=== PATIENT | female | born 1960 | race Native Hawaiian/Other Pacific Islander ===

== ENCOUNTER 2017-12-20 17:46 | Inpatient (IN) | payer OTHER, SELFPAY ==
[2017-12-20] MEDS ORDERED: Piperacill/Tazo 3.375gm in Dex 3.375 GM/50 ML BAG IVPB STA (18:24)
[2017-12-20] MEDS ORDERED: Sodium Chloride 0.9% 1,000 ML IV ONE ×2 (18:24→19:47)
--- NOTE | 2017-12-20 18:45 | C.PDOC ---
History Of Present Illness 57yo female, with history of hypertension, CAD and diabetes, comes to ER with complaints of bilateral leg pain, left >> right leg. Patient states she was seen by her manager diabetes for a routine check up and earlier today had a venous US of legs. Patient reports she went home after the study and had right leg pain and subsequently left leg pain, which was much worse. She states the left leg is now swollen, red and hot; patient noted to have a temperature ft 103 in ED. She states she was seen in the office by Dr. Ranjiht Cook and advised her to come to the ER. Otherwise, she denies any chest pain, shortness of breath, weakness, numbness, or tingling in her lower extremities. She offers no additional medical complaints. Time Seen by Provider: 12/20/17 18:18 Chief Complaint (Nursing): Lower Extremity Problem/Injury History Per: Patient History/Exam Limitations: no limitations Onset/Duration Of Symptoms: Hrs Current Symptoms Are (Timing): Still Present Additional History Per: Patient Past Medical History Reviewed: Historical Data, Nursing Documentation, Vital Signs Vital Signs: Last Vital Signs Temp 103.2 F H 12/20/17 19:07 Pulse 118 H 12/20/17 20:00 Resp 20 12/20/17 20:00 BP 129/55 L 12/20/17 20:00 Pulse Ox 96 12/20/17 20:00 - Medical History PMH: CAD, Diabetes, HTN Surgical History: Coronary Stent Family History: States: No Known Family Hx - Social History Hx Tobacco Use: No Hx Alcohol Use: No Hx Substance Use: No - Immunization History Hx Tetanus Toxoid Vaccination: No Hx Influenza Vaccination: Yes Hx Pneumococcal Vaccination: Yes Review Of Systems Constitutional: Positive for: Fever (103) Cardiovascular: Negative for: Chest Pain Respiratory: Negative for: Shortness of Breath Musculoskeletal: Positive for: Leg Pain (bilateral lower extremity pain, left > > right.) Neurological: Negative for: Weakness, Numbness Physical Exam - Physical Exam Appears: Non-toxic Skin: Dry Head: Normacephalic Eye(s): bilateral: Normal Inspection Neck: Normal ROM, Supple Chest: Symmetrical Cardiovascular: Rhythm Regular (+ tachycardic, noted to have HR of 130) Respiratory: Normal Breath Sounds, No Rales, No Rhonchi, No Wheezing Gastrointestinal/Abdominal: Soft, No Tenderness Back: Normal Inspection Extremity: Tenderness (left leg is exquisitely tender, with swelling and erythema. 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 Patient given IV Zosyn and Vancomycin, IV fluids and Tylenol PO. Reevaluation Time: 20:09 Reassessment Condition: Improved - Physician Consult Information Time Consulting Physician Contacted: 20:09 Physician Contacted: Gilda Cook Outcome Of Conversation: Patient to be admitted for IV antibiotics for cellulitis with sepsis. Disposition - Disposition Disposition: HOSPITALIZED Disposition Time: 20:10 Condition: GUARDED - POA Present On Arrival: Poor Glycemic Control - Clinical Impression Clinical Impression: Cellulitis of leg, left, Sepsis - Scribe Statement The provider has reviewed the documentation as recorded by the Elvis Tang Provider Attestation: All medical record entries made by the Elvis were at my direction and personally dictated by me. I have reviewed the chart and agree that the record accurately reflects my personal performance of the history, physical exam, medical decision making, and the department course for this patient. I have also personally directed, reviewed, and agree with the discharge instructions and disposition.
[2017-12-20 18:47] LABS: BASO # 0.1 K/uL (0.0-0.2); BASO % 0.5 % (0.0-2.0); EOS % 0.2 % (0.0-4.0); LYMPH # 1.2 K/uL (1.0-4.3); LYMPH % 9.8 % (20.0-40.0); MEAN CELL VOLUME 88.2 fL (81.0-99.0); MEAN CORPUSCULAR HEMOGLOBIN 29.2 pg (27.0-31.0); MEAN CORPUSCULAR HGB CONC 33.1 g/dL (33.0-37.0); MONO # 0.8 K/uL (0.0-0.8); MONO % 6.9 % (0.0-10.0); NEUT # 9.8 K/uL (1.8-7.0); NEUT % 82.6 % (50.0-75.0); NRBC % 0.1 % (0.0-2.0); PLATELET COUNT 301 K/uL (130-400); RBC 4.72 Mil/uL (3.80-5.20); RED CELL DISTRIBUTION WIDTH 14.6 % (11.5-14.5)
[2017-12-20] MEDS ORDERED: Sodium Chloride 0.9% 1,000 ML ONE ×2 (18:49→19:39)
[2017-12-20 18:50] LABS: WHITE BLOOD COUNT 11.9 K/uL (4.8-10.8)
[2017-12-20] MEDS ORDERED: Piperacillin/Tazobact 3.375 gm 100 ML IVPB ONE (18:50)
[2017-12-20 18:51] LABS: HEMOGLOBIN 13.8 g/dL (11.0-16.0)
[2017-12-20 18:56] LABS: VENOUS BLOOD GAS PCO2 53 mmHg (40-60); VENOUS BLOOD PH 7.33 (7.32-7.43)
[2017-12-20 19:01] LABS: ALB/GLOB RATIO 1.2 (1.0-2.1); ALBUMIN 4.6 g/dL (3.5-5.0); ALT/SGPT 29 U/L (9-52); AST/SGOT 34 U/L (14-36); BLOOD UREA NITROGEN 20 mg/dL (7-17); CALCIUM 10.2 mg/dl (8.6-10.4); GFR AFRICAN-AMERICAN > 60; GFR NON-AFRICAN AMERICAN > 60
[2017-12-20 19:02] LABS: INR 0.9; PROTHROMBIN TIME 10.3 SECONDS (9.7-12.2)
[2017-12-20 19:30] LABS: BANDS 9 % (0-2); LYMPHOCYTE 10 % (20-40); MONOCYTE 6 % (0-10); NEUTROPHIL 75 % (50-75); PLATELET ESTIMATE NORMAL (NORMAL); TOTAL CELLS COUNTED 100
[2017-12-20 19:41] LABS: SQUAMOUS EPITHIAL 3 /hpf (0-5); URINE BILIRUBIN NEGATIVE (NEGATIVE); URINE BLOOD NEGATIVE (NEGATIVE); URINE CLARITY Clear (Clear); URINE COLOR Yellow (YELLOW); URINE GLUCOSE (UA) 3+ mg/dL (Normal); URINE LEUKOCYTE ESTERASE NEG Leu/uL (Negative); URINE PROTEIN NEGATIVE (NEGATIVE); URINE UROBILINOGEN NORMAL mg/dL (0.2-1.0)
[2017-12-20] MEDS: Vancomycin 1 gm/NS 200 ml 1 GM/200 ML BAG IVPB STA ×2 (19:45→20:10)
[2017-12-20 21:59] LABS: VENOUS BLOOD GAS PCO2 36 mmHg (40-60); VENOUS BLOOD GAS PO2 42 mm/Hg (30-55)
[2017-12-20] MEDS: Vancomycin 1 gm/NS 200 ml 1 GM/200 ML BAG IVPB SCH (22:00)
[2017-12-21 00:12] VITALS: RESP 20
[2017-12-21] MEDS: Oxycodone/Acetaminophen 5/325 mg Tab PO PRN ×3 (01:15→21:35)
[2017-12-21] MEDS: Piperacill/Tazo 3.375gm in Dex 3.375 GM/50 ML BAG IVPB SCH ×3 (02:00→17:31)
--- NOTE | 2017-12-21 08:15 | RAD ---
Date of service: 12/20/2017 HISTORY: Sepsis Patient COMPARISON: 08/09/2013 FINDINGS: LUNGS: Marked shallow lung volumes -more than before No consolidation. The vascular plethoric appearance compatible -in part with crowding from jypo-inspiration. Superimposed pulmonary venous congestion with mild cardiomegaly suspect . Large body habitus and portable technique accentuating all of the above PLEURA: No significant pleural effusion identified, no pneumothorax apparent. CARDIOVASCULAR: The vascular plethoric appearance compatible -in part with crowding from jypo-inspiration. Superimposed pulmonary venous congestion with mild cardiomegaly suspect . Large body habitus and portable technique accentuating all of the above OSSEOUS STRUCTURES: Limited visualization VISUALIZED UPPER ABDOMEN: Normal. OTHER FINDINGS: None. IMPRESSION: No consolidation cardiomegaly with mild pulmonary venous congestion -shallow lung volumes pulmonary vascular crowding accentuating
--- NOTE | 2017-12-21 09:08 | HP ---
HISTORY OF PRESENT ILLNESS: This is a 57-year-old [place] female who came to my office earlier today with history of severe left leg pain. The patient is unable to bear weight on that leg. Complained of left calf pain. The patient also has high fever and chills. The patient also has complained of redness and tingling in the left leg. The patient also has similar complaints on the right leg day before and claims now she is feeling good in the right leg. The patient went to a food manager for a routine checkup and earlier today had a venous ultrasound of the legs. The patient reports she went home after the study and had right leg pain and subsequently left leg pain. The pain was getting worse. The patient also complained of swelling of the left leg. In the emergency room, the patient's temperature was 103 degrees. She also complains of numbness, tingling, and burning. No history of nausea or vomiting. PAST MEDICAL HISTORY: Past history of diabetes, hypertension, and coronary artery disease. MEDICATIONS: The patient's medications are reviewed by me. ALLERGIES: NO KNOWN ALLERGY. SOCIAL HISTORY: Nonsmoker. Nonalcoholic. No IVDA. REVIEW OF SYSTEMS: CARDIOVASCULAR SYSTEM: Negative for chest pain. RESPIRATORY SYSTEM: Negative for shortness of breath. GI SYSTEM: Negative for nausea, vomiting, abdominal pain. WELL REACTIVATOR OPERATOR: Left leg tingling and numbness. No focal neurological deficit. EXTREMITIES: Edema on the leg present and redness of the leg present. GENERAL: Febrile. : No urinary complaint. PSYCHIATRIC: The patient is stable. All other systems are negative. PHYSICAL EXAMINATION: GENERAL: This is a 57-year-old [place] female, alert, oriented, in severe pain. VITAL SIGNS: Temperature 103.2 degrees Fahrenheit, pulse 118, respirations 20, and blood pressure 129/55 mmHg, pulse ox is 96% on room air. HEENT: Normal. NECK: JVP is flat. Carotid, no bruits. LUNGS: There are no rales. No wheezing. HEART: S1 and S2 normal. No gallop. No murmur. ABDOMEN: Soft, nontender. No organomegaly. WELL REACTIVATOR OPERATOR: No focal neurological deficits. Left leg is red, swollen, and severely tender. Calf muscle tenderness is also present. Right leg has similar findings but milder than the left leg. LABORATORY DATA: On admission, white cell count is elevated at 11,900, hemoglobin 13.8. Blood sugar 211. BUN 20, potassium 4.7. EKG is sinus tachycardia. IMPRESSION: Left leg cellulitis with sepsis, rule out deep venous thrombosis; diabetes; hypertension. PLAN: The patient will be admitted to the floor. We will give IV antibiotics and do septic workup and other workup as needed. Gilda Cook MD
[2017-12-21] MEDS: Vancomycin 1 gm/NS 200 ml 1 GM/200 ML BAG IVPB SCH ×2 (09:42→21:34)
[2017-12-21] MEDS: Cilostazol 50 mg Tab UD PO SCH ×2 (09:46→17:37)
[2017-12-21] MEDS: (Lantus) Insulin Glargine, Recombinant SC SCH ×2 (09:50→17:37)
[2017-12-21] MEDS ORDERED: INSULIN LISPRO PROTAMIN SQ SCH (10:00)
[2017-12-21] MEDS ORDERED: LISPRO SQ SCH (10:00)
--- NOTE | 2017-12-21 11:28 | CARD ---
APPROVED REPORT Date of service: 12/20/2017 EKG Measurement Heart [id number] ND [id number] [id number] <Conclusion> Sinus tachycardia Possible Left atrial enlargement Left axis deviation Septal infarct, age undetermined Inferior infarct, age undetermined Abnormal ECG
--- NOTE | 2017-12-21 12:25 | CP.PCM.PN ---
Subjective - Date & Time of Evaluation Date of Evaluation: 12/21/17 Time of Evaluation: 12:22 - Subjective Subjective: STILL FEBRILE. FEELS BETTER. LESS LEG PAIN AND REDNESS. VS WNL. Objective - Vital Signs/Intake and Output Vital Signs (last 24 hours): Temp Pulse Resp BP Pulse Ox 101.5 F H 104 H 20 135/70 96 12/21/17 08:47 12/21/17 08:00 12/21/17 08:00 12/21/17 09:46 12/21/17 08:00 Intake and Output: 12/21/17 12/21/17 06:59 18:59 Intake Total 450 Balance 450 - Medications Medications: Current Medications Acetaminophen (Tylenol 325mg Tab) 975 mg PO ONCE PRN PRN Reason: Fever >100.4 F Last Admin: 12/21/17 08:47 Dose: 975 mg Aspirin (Aspirin Chewable) 81 mg PO DAILY [facility] Last Admin: 12/21/17 09:46 Dose: 81 mg Cilostazol (Pletal) 50 mg PO BID [facility] Last Admin: 12/21/17 09:46 Dose: 50 mg Clonidine HCl (Catapres) 0.1 mg PO BID [facility] Last Admin: 12/21/17 09:51 Dose: 0.1 mg Clopidogrel Bisulfate (Plavix) 75 mg PO DAILY [facility] Last Admin: 12/21/17 09:51 Dose: 75 mg Duloxetine HCl (Cymbalta) 20 mg PO DAILY [facility] Last Admin: 12/21/17 09:55 Dose: 20 mg Enalapril Maleate (Vasotec) 20 mg PO DAILY [facility] Last Admin: 12/21/17 09:46 Dose: 20 mg Gabapentin (Neurontin) 300 mg PO BID [facility] Last Admin: 12/21/17 09:52 Dose: 300 mg Glimepiride (Amaryl) 4 mg PO BID [facility] Last Admin: 12/21/17 09:56 Dose: Not Given Heparin Sodium (Porcine) (Heparin) 5,000 units SC Q12 [facility] Last Admin: 12/21/17 09:51 Dose: 5,000 units Home Med (Canagliflozin [Invokana]) 100 mg PO DAILY [facility] Home Med (Insulin Lispro Protamin/Lispro [Humalog Mix 75-25 Kwikpen]) 60 unit SQ BID [facility] Hydrochlorothiazide (Microzide) 12.5 mg PO DAILY [facility] Last Admin: 12/21/17 09:52 Dose: 12.5 mg Piperacillin Sod/Tazobactam Sod (Zosyn 3.375 Gm Iv Premix) 3.375 gm in 50 mls @ 100 mls/hr IVPB Q8H [facility] PRN Reason: Protocol Last Admin: 12/21/17 09:42 Dose: 100 mls/hr Vancomycin/Sodium Chloride (Vancomycin 1 Gm/Ns 200 Ml) 1 gm in 200 mls @ 133.333 mls/hr IVPB Q12H [facility] PRN Reason: Protocol Stop: 12/25/17 22:01 Last Admin: 12/21/17 09:42 Dose: 133.333 mls/hr Insulin Glargine (Lantus) 45 unit SC BID [facility] Last Admin: 12/21/17 09:50 Dose: 45 units Oxycodone/Acetaminophen (Percocet 5/325 Mg Tab) 1 tab PO Q6H PRN PRN Reason: Pain, severe (8-10) Stop: 12/23/17 21:26 Last Admin: 12/21/17 07:39 Dose: 1 tab Pneumococcal Polyvalent Vaccine (Pneumovax 23 Vaccine) 0.5 ml IM .ONCE ONE Stop: 12/22/17 10:01 Rosuvastatin Calcium (Crestor) 20 mg PO [facility] Last Admin: 12/20/17 22:35 Dose: 20 mg - Labs Labs: 12/20/17 18:44 12/20/17 18:44 PT 10.3 SECONDS (9.7-12.2) 12/20/17 18:44 INR 0.9 12/20/17 18:44 APTT 34 SECONDS (21-34) 12/20/17 18:44 - Constitutional Appears: No Acute Distress, Chronically Ill - Eye Exam Eye Exam: EOMI, Normal appearance, PERRL Pupil Exam: NORMAL ACCOMODATION, PERRL - ENT Exam ENT Exam: Mucous Membranes Moist, Normal Exam - Neck Exam Neck Exam: Full ROM, Normal Inspection. absent: Lymphadenopathy - Respiratory Exam Respiratory Exam: Clear to Ausculation Bilateral, NORMAL BREATHING PATTERN - Cardiovascular Exam Cardiovascular Exam: REGULAR RHYTHM, +S1, +S2. absent: Murmur - GI/Abdominal Exam GI & Abdominal Exam: Soft, Normal Bowel Sounds. absent: Tenderness - Extremities Exam Extremities Exam: Full ROM, Normal Capillary Refill, Normal Inspection. absent : Joint Swelling, Pedal Edema - Neurological Exam Neurological Exam: Alert, Awake, CN II-XII Intact, Normal Gait, Oriented x3 - Psychiatric Exam Psychiatric exam: Normal Affect, Normal Mood Assessment and Plan - Assessment and Plan (Free Text) Assessment: CELLULITIS LT LEG R/O SEPSIS. DM. R/O DVT. Plan: FOR ID EVAL. IV ABTS.
--- NOTE | 2017-12-21 18:31 | CP.PCM.CON ---
History of Present Illness - History of Present Illness History of Present Illness: 57yo female, with history of hypertension, CAD and diabetes, comes to ER with complaints of bilateral leg pain, left >> right leg. Patient states she was seen by her lay out helper for a routine check up and had a venous US of legs. Patient reports she went home after the study and had right leg pain and subsequently left leg pain, which was much worse. She states the left leg is now swollen, red and hot; patient noted to have a temperature ft 103 in ED. ID consult requested for antibiotic management - Medical History PMH: CAD, Diabetes, HTN Surgical History: Coronary Stent Family History: States: No Known Family Hx Review of Systems - Review of Systems All systems: reviewed and no additional remarkable complaints except - Constitutional Constitutional: As Per HPI - EENT Eyes: As Per HPI. absent: Blind Spots, Blurred Vision, Change in Vision, Decreased Night Vision, Diplopia, Discharge, Dry Eye, Exophthalmos, Floaters, Irritation, Itchy Eyes, Loss of Peripheral Vision, Pain, Photophobia, Requires Corrective Lenses, Sees Flashes, Spots in Vision, Tunnel Vision, Other Visual Disturbances, Loss of Vision, Other Ears: absent: As Per HPI, Decreased Hearing, Ear Discharge, Ear Pain, Tinnitus, Abnormal Hearing, Disequilibrium, Dizziness, Other Nose/Mouth/Throat: absent: As Per HPI, Epistaxis, Nasal Congestion, Nasal Discharge, Nasal Obstruction, Nasal Trauma, Nose Pain, Post Nasal Drip, Sinus Pain, Sinus Pressure, Bleeding Gums, Change in Voice, Dental Pain, Dry Mouth, Dysphagia, Halitosis, Hoarsness, Lip Swelling, Mouth Lesions, Mouth Pain, Odynophagia, Sore Throat, Throat Swelling, Tongue Swelling, Facial Pain, Neck Pain, Neck Mass, Other - Breasts Breasts: absent: As Per HPI, Change in Shape, Mass, Pain, Nipple Discharge, Nipple Inversion, Skin Changes, Swelling, Other - Cardiovascular Cardiovascular: As Per HPI - Respiratory Respiratory: As Per HPI - Gastrointestinal Gastrointestinal: absent: As Per HPI, Abdominal Pain, Belching, Bloating, Change in Bowel Habits, Change in Stool Character, Coffee Ground Emesis, Constipation, Cramping, Diarrhea, Dyspepsia, Dysphagia, Early Satiety, Excessive Flatus, Fecal Incontinence, Heartburn, Hematemesis, Hematochezia, Loose Stools, Melena, Nausea, Odynophagia, Temesmus, Vomiting, Other - Genitourinary Genitourinary: absent: As Per HPI, Change in Urinary Stream, Difficulty Urinating, Dysuria, Flank Pain, Hematuria, Pyuria, Nocturia, Urinary Incontinence, Urinary Frequency, Urinary Hesitance, Urinary Urgency, Voiding Freq/Small Amts, Freq UTI, Hx Renal/Bladder Calculi, Hx /Renal Surgery, Bladder Distension, Other - Reproductive: Female Reproductive:Female: absent: As Per HPI, Amenorrhea, Amenorrhea/ Control, Currently Menstual, Cycle <21 Days, Cycle >35 Days, Cycle Variable, Menses 1-7 Days, Menses >/= 8 Days, Menses Variable, Cycle > 4 Weeks Between, No Menses for 6 Months, Heavy Menses, Light Menses, Normal Menses, Spotting Between Cycles , S/P Hysterectomy, Menopausal, Post Menopausal, Premenarche, Abnormal Vaginal Bleeding, Dysmenorrhea, Dyspareunia, Genital Lesions, Genital Pruritis, Pelvic Pain, Prolapse Symptoms, Sexual Dysfunction, Vaginal Discharge, Vaginal Dryness , Vaginal Odor, Vaginal Pruritis, Other - Menstruation Menstruation: absent: As Per HPI, Amenorrhea, Amenorrhea/ Control, Currently Menstual, Cycle <21 Days, Cycle >35 Days, Cycle Variable, Menses 1-7 Days, Menses >/= 8 Days, Menses Variable, Cycle > 4 Weeks Between, No Menses for 6 Months, Heavy Menses, Light Menses, Normal Menses, Spotting Between Cycles , S/P Hysterectomy, Menopausal, Post Menopausal, Premenarche, Abnormal Vaginal Bleeding, Dysmenorrhea, Other - Musculoskeletal Musculoskeletal: absent: As Per HPI, Abnormal Gait, Arthralgias, Atrophy, Back Pain, Deformity, Joint Swelling, Limited Range of Motion, Loss of Height, Muscle Cramps, Muscle Weakness, Myalgias, Neck Pain, Numbness, Radiating Pain into Limb, Stiffness, Tingling, Other - Integumentary Integumentary: As Per HPI - Neurological Neurological: absent: As Per HPI, Abnormal Gait, Abnormal Hearing, Abnormal Movements, Abnormal Speech, Behavioral Changes, Burning Sensations, Confusion, Convulsions, Disequilibrium, Dizziness, Numbness, Focal Weakness, Frequent Falls , Headaches, Lack of Coordination, Loss of Vision, Memory Loss, Paresthesias, Radicular Pain, Restless Legs, Sensory Deficit, Syncope, Tingling, Tremor, Vertigo, Weakness, Other Visual Disturbances, Other - Psychiatric Psychiatric: absent: As Per HPI, Abnormal Sleep Pattern, Anhedonia, Anxiety, Auditory Hallucinations, Behavioral Changes, Change in Appetite, Change in Libido, Confusion, Depression, Difficulty Concentrating, Hallucinations, Homicidal Ideation, Hopelessness, Irritability, Memory Loss, Mood Swings, Panic Attacks, Paranoia, Suicidal Ideation, Visual Hallucinations, Tactile Hallucinations, Other - Endocrine Endocrine: absent: As Per HPI, Change in Body Appearance, Change in Libido, Cold Intolorance, Deepening of Voice, Excessive Sweating, Fatigue, Flushing, Heat Intolorance, Increase in Ring/Shoe/Hat Size, Palpitations, Polydipsia, Polyphagia, Polyuria, Other - Hematologic/Lymphatic Hematologic: absent: As Per HPI, Easy Bleeding, Easy Bruising, Lymphadenopathy, Other Past Patient History - Past Medical History & Family History Past Medical History?: Yes - Past Social History Smoking Status: Never Smoked - CARDIAC Hx Cardiac Disorders: Yes Hx Hypertension: Yes Other/Comment: CAD - PULMONARY Hx Respiratory Disorders: No - NEUROLOGICAL Hx Neurological Disorder: No - HEENT Hx HEENT Problems: No - RENAL Hx Chronic Kidney Disease: No - ENDOCRINE/METABOLIC Hx Endocrine Disorders: Yes Hx Diabetes Mellitus Type 2: Yes - HEMATOLOGICAL/ONCOLOGICAL Hx Blood Disorders: No - INTEGUMENTARY Hx Dermatological Problems: No - MUSCULOSKELETAL/RHEUMATOLOGICAL Hx Musculoskeletal Disorders: No Hx Falls: No - GASTROINTESTINAL Hx Gastrointestinal Disorders: No - GENITOURINARY/GYNECOLOGICAL Hx Genitourinary Disorders: No - PSYCHIATRIC Hx Psychophysiologic Disorder: No Hx Substance Use: No - SURGICAL HISTORY Hx Surgeries: Yes Hx Coronary Stent: Yes - ANESTHESIA Hx Anesthesia: Yes Hx Anesthesia Reactions: No Meds Allergies/Adverse Reactions: Allergies Allergy/AdvReac Type Severity Reaction Status Date / Time No Known Allergies Allergy Verified 12/20/17 17:59 - Medications Medications: Current Medications Acetaminophen (Tylenol 325mg Tab) 975 mg PO ONCE PRN PRN Reason: Fever >100.4 F Last Admin: 12/21/17 08:47 Dose: 975 mg Aspirin (Aspirin Chewable) 81 mg PO DAILY [facility] Last Admin: 12/21/17 09:46 Dose: 81 mg Cilostazol (Pletal) 50 mg PO BID [facility] Last Admin: 12/21/17 17:37 Dose: 50 mg Clonidine HCl (Catapres) 0.1 mg PO BID [facility] Last Admin: 12/21/17 17:36 Dose: 0.1 mg Clopidogrel Bisulfate (Plavix) 75 mg PO DAILY [facility] Last Admin: 12/21/17 09:51 Dose: 75 mg Duloxetine HCl (Cymbalta) 20 mg PO DAILY [facility] Last Admin: 12/21/17 09:55 Dose: 20 mg Enalapril Maleate (Vasotec) 20 mg PO DAILY [facility] Last Admin: 12/21/17 09:46 Dose: 20 mg Gabapentin (Neurontin) 300 mg PO BID [facility] Last Admin: 12/21/17 17:36 Dose: 300 mg Glimepiride (Amaryl) 4 mg PO BID [facility] Last Admin: 12/21/17 17:37 Dose: 4 mg Heparin Sodium (Porcine) (Heparin) 5,000 units SC Q12 [facility] Last Admin: 12/21/17 09:51 Dose: 5,000 units Home Med (Patient's Own Medication) 1 tab PO DAILY [facility] Home Med (Insulin Lispro Protamin/Lispro [Humalog Mix 75-25 Kwikpen]) 60 unit SQ BID [facility] Hydrochlorothiazide (Microzide) 12.5 mg PO DAILY [facility] Last Admin: 12/21/17 09:52 Dose: 12.5 mg Piperacillin Sod/Tazobactam Sod (Zosyn 3.375 Gm Iv Premix) 3.375 gm in 50 mls @ 100 mls/hr IVPB Q8H [facility] PRN Reason: Protocol Last Admin: 12/21/17 17:31 Dose: 100 mls/hr Vancomycin/Sodium Chloride (Vancomycin 1 Gm/Ns 200 Ml) 1 gm in 200 mls @ 133.333 mls/hr IVPB Q12H [facility] PRN Reason: Protocol Stop: 12/25/17 22:01 Last Admin: 12/21/17 09:42 Dose: 133.333 mls/hr Insulin Glargine (Lantus) 45 unit SC BID [facility] Last Admin: 12/21/17 17:37 Dose: 45 units Oxycodone/Acetaminophen (Percocet 5/325 Mg Tab) 1 tab PO Q6H PRN PRN Reason: Pain, severe (8-10) Stop: 12/23/17 21:26 Last Admin: 12/21/17 07:39 Dose: 1 tab Pneumococcal Polyvalent Vaccine (Pneumovax 23 Vaccine) 0.5 ml IM .ONCE ONE Stop: 12/22/17 10:01 Rosuvastatin Calcium (Crestor) 20 mg PO HS [facility] Last Admin: 12/20/17 22:35 Dose: 20 mg Physical Exam - Constitutional Appears: Non-toxic, Chronically Ill - Head Exam Head Exam: NORMOCEPHALIC - Eye Exam Eye Exam: PERRL - ENT Exam ENT Exam: Mucous Membranes Dry - Neck Exam Neck exam: Negative for: Lymphadenopathy - Respiratory Exam Respiratory Exam: Decreased Breath Sounds - Cardiovascular Exam Cardiovascular Exam: REGULAR RHYTHM - GI/Abdominal Exam GI & Abdominal Exam: Diminished Bowel Sounds - Rectal Exam Rectal Exam: Deferred - Exam Exam: NORMAL INSPECTION - Extremities Exam Extremities exam: Positive for: pedal pulses present. Negative for: calf tenderness, pedal edema, tenderness - Back Exam Back exam: absent: CVA tenderness (L), CVA tenderness (R), paraspinal tenderness - Neurological Exam Neurological exam: Alert, CN II-XII Intact, Oriented x3, Reflexes Normal - Psychiatric Exam Psychiatric exam: Normal Mood - Skin Skin Exam: Dry, Erythema, Intact Additional comments: swelling redness LLE Results - Vital Signs Recent Vital Signs: Last Vital Signs Temp 98 F 12/21/17 16:00 Pulse 86 12/21/17 16:00 Resp 20 12/21/17 16:00 BP 103/67 12/21/17 16:00 Pulse Ox 97 12/21/17 16:00 - Labs Result Diagrams: 12/20/17 18:44 12/20/17 18:44 Labs: Laboratory Results - last 24 hr 12/20/17 12/20/17 12/20/17 18:44 18:44 18:44 WBC 11.9 H D RBC 4.72 Hgb 13.8 D Hct 41.6 MCV 88.2 MCH 29.2 MCHC 33.1 RDW 14.6 H Plt Count 301 MPV 8.0 Neut % (Auto) 82.6 H Lymph % (Auto) 9.8 L Humphreys % (Auto) 6.9 Eos % (Auto) 0.2 Baso % (Auto) 0.5 Neut # (Auto) 9.8 H Lymph # (Auto) 1.2 Humphreys # (Auto) 0.8 Eos # (Auto) 0.0 Baso # (Auto) 0.1 Neutrophils % (Manual) 75 Band Neutrophils % 9 H Lymphocytes % (Manual) 10 L Monocytes % (Manual) 6 Platelet Estimate Normal PT 10.3 INR 0.9 APTT 34 pO2 VBG pH VBG pCO2 VBG HCO3 VBG Total CO2 VBG O2 Sat (Calc) VBG Base Excess VBG Potassium Glucose Lactate Sodium 142 Potassium 4.7 Chloride 102 Carbon Dioxide 25 Anion Gap 20 BUN 20 H Creatinine 0.9 Est GFR ( Amer) > 60 Est GFR (Non-Af Amer) > 60 POC Glucose (mg/dL) Random Glucose 211 H Calcium 10.2 Phosphorus 3.4 Magnesium 1.9 Total Bilirubin 0.8 AST 34 ALT 29 Alkaline Phosphatase 76 Total Protein 8.4 H Albumin 4.6 Globulin 3.8 Albumin/Globulin Ratio 1.2 Venous Blood Potassium Urine Color Urine Clarity Urine pH Ur Specific [place] Urine Protein Urine Glucose (UA) Urine Ketones Urine Blood Urine Nitrate Urine Bilirubin Urine Urobilinogen Ur Leukocyte Esterase Urine WBC (Auto) Urine RBC (Auto) Ur Squamous Epith Cells 12/20/17 12/20/17 12/20/17 18:51 19:24 21:55 WBC RBC Hgb Hct MCV MCH MCHC RDW Plt Count MPV Neut % (Auto) Lymph % (Auto) Humphreys % (Auto) Eos % (Auto) Baso % (Auto) Neut # (Auto) Lymph # (Auto) Humphreys # (Auto) Eos # (Auto) Baso # (Auto) Neutrophils % (Manual) Band Neutrophils % Lymphocytes % (Manual) Monocytes % (Manual) Platelet Estimate PT INR APTT pO2 42 VBG pH 7.33 7.40 VBG pCO2 53 36 L VBG HCO3 22.8 VBG Total CO2 29.5 H 23.4 VBG O2 Sat (Calc) 16.0 L 79.8 H VBG Base Excess 1.0 -2.0 L VBG Potassium 4.8 3.9 Glucose 219 H 191 H Lactate 3.9 H 1.9 Sodium 137.0 138.0 Potassium Chloride 100.0 109.0 H Carbon Dioxide Anion Gap BUN Creatinine Est GFR ( Amer) Est GFR (Non-Af Amer) POC Glucose (mg/dL) Random Glucose Calcium Phosphorus Magnesium Total Bilirubin AST ALT Alkaline Phosphatase Total Protein Albumin Globulin Albumin/Globulin Ratio Venous Blood Potassium 4.8 3.9 Urine Color Yellow Urine Clarity Clear Urine pH 6.0 Ur Specific [place] 1.020 Urine Protein Negative Urine Glucose (UA) 3+ H Urine Ketones Negative Urine Blood Negative Urine Nitrate Negative Urine Bilirubin Negative Urine Urobilinogen Normal Ur Leukocyte Esterase Neg Urine WBC (Auto) 2 Urine RBC (Auto) 2 Ur Squamous Epith Cells 3 12/20/17 12/21/17 12/21/17 21:59 07:30 11:42 WBC RBC Hgb Hct MCV MCH MCHC RDW Plt Count MPV Neut % (Auto) Lymph % (Auto) Humphreys % (Auto) Eos % (Auto) Baso % (Auto) Neut # (Auto) Lymph # (Auto) Humphreys # (Auto) Eos # (Auto) Baso # (Auto) Neutrophils % (Manual) Band Neutrophils % Lymphocytes % (Manual) Monocytes % (Manual) Platelet Estimate PT INR APTT pO2 VBG pH VBG pCO2 VBG HCO3 VBG Total CO2 VBG O2 Sat (Calc) VBG Base Excess VBG Potassium Glucose Lactate Sodium Potassium Chloride Carbon Dioxide Anion Gap BUN Creatinine Est GFR ( Amer) Est GFR (Non-Af Amer) POC Glucose (mg/dL) 180 H 94 193 H Random Glucose Calcium Phosphorus Magnesium Total Bilirubin AST ALT Alkaline Phosphatase Total Protein Albumin Globulin Albumin/Globulin Ratio Venous Blood Potassium Urine Color Urine Clarity Urine pH Ur Specific [place] Urine Protein Urine Glucose (UA) Urine Ketones Urine Blood Urine Nitrate Urine Bilirubin Urine Urobilinogen Ur Leukocyte Esterase Urine WBC (Auto) Urine RBC (Auto) Ur Squamous Epith Cells 12/21/17 17:04 WBC RBC Hgb Hct MCV MCH MCHC RDW Plt Count MPV Neut % (Auto) Lymph % (Auto) [place] % (Auto) Eos % (Auto) Baso % (Auto) Neut # (Auto) Lymph # (Auto) [place] # (Auto) Eos # (Auto) Baso # (Auto) Neutrophils % (Manual) Band Neutrophils % Lymphocytes % (Manual) Monocytes % (Manual) Platelet Estimate PT INR APTT pO2 VBG pH VBG pCO2 VBG HCO3 VBG Total CO2 VBG O2 Sat (Calc) VBG Base Excess VBG Potassium Glucose Lactate Sodium Potassium Chloride Carbon Dioxide Anion Gap BUN Creatinine Est GFR ( Amer) Est GFR (Non-Af Amer) POC Glucose (mg/dL) 206 H Random Glucose Calcium Phosphorus Magnesium Total Bilirubin AST ALT Alkaline Phosphatase Total Protein Albumin Globulin Albumin/Globulin Ratio Venous Blood Potassium Urine Color Urine Clarity Urine pH Ur Specific [place] Urine Protein Urine Glucose (UA) Urine Ketones Urine Blood Urine Nitrate Urine Bilirubin Urine Urobilinogen Ur Leukocyte Esterase Urine WBC (Auto) Urine RBC (Auto) Ur Squamous Epith Cells
[2017-12-22] MEDS: Piperacill/Tazo 3.375gm in Dex 3.375 GM/50 ML BAG IVPB SCH ×3 (02:34→17:31)
[2017-12-22 06:47] LABS: BASO # 0.1 K/uL (0.0-0.2); BASO % 0.5 % (0.0-2.0); EOS # 0.1 K/uL (0.0-0.7); EOS % 1.3 % (0.0-4.0); LYMPH % 18.3 % (20.0-40.0); MEAN CELL VOLUME 87.9 fL (81.0-99.0); MEAN CORPUSCULAR HEMOGLOBIN 29.6 pg (27.0-31.0); MEAN CORPUSCULAR HGB CONC 33.7 g/dL (33.0-37.0); MEAN PLATELET VOLUME 8.2 fL (7.2-11.7); MONO # 0.9 K/uL (0.0-0.8); MONO % 8.1 % (0.0-10.0); NEUT % 71.8 % (50.0-75.0); NRBC % 0.1 % (0.0-2.0); RBC 4.04 Mil/uL (3.80-5.20); RED CELL DISTRIBUTION WIDTH 14.5 % (11.5-14.5); WHITE BLOOD COUNT 11.1 K/uL (4.8-10.8)
[2017-12-22 08:22] LABS: BLOOD UREA NITROGEN 20 mg/dL (7-17); CALCIUM 9.3 mg/dl (8.6-10.4); GFR AFRICAN-AMERICAN > 60; GFR NON-AFRICAN AMERICAN 58
[2017-12-22] MEDS ORDERED: Pneumococcal 23-Valent Vaccine IM ONE (10:00)
[2017-12-22] MEDS: Cilostazol 50 mg Tab UD PO SCH ×2 (10:29→17:32)
[2017-12-22] MEDS: INVOKANA 100MG PO SCH (10:29)
[2017-12-22] MEDS: (Lantus) Insulin Glargine, Recombinant SC SCH ×2 (10:30→17:32)
[2017-12-22] MEDS: Vancomycin 1 gm/NS 200 ml 1 GM/200 ML BAG IVPB SCH ×2 (10:47→21:19)
--- NOTE | 2017-12-22 10:53 | VASCLAB ---
Date of service: 12/21/2017 PROCEDURE: Lower Extremity Venous Duplex Exam. HISTORY: swelling of legs. PRIORS: None. TECHNIQUE: Bilateral common femoral, femoral, popliteal and posterior tibial, peroneal and great saphenous veins were evaluated. Flow was assessed with color Doppler, compressibility, assessment of phasic flow and augmentation response. Report prepared by MATTIE Connor FINDINGS: RIGHT: 1. Common Femoral Vein: 1.1. Compressibility - Fully compressible: Thrombus - None : Flow - Phasic: Augmentation -Normal: Reflux - None. 2. Femoral Vein: 2.1. Compressibility - Fully compressible: Thrombus - None : Flow - Phasic: Augmentation -Normal: Reflux - None. 3. Popliteal Vein: 3.1. Compressibility - Fully compressible: Thrombus - None : Flow - Phasic: Augmentation -Normal: Reflux - None. 4. Posterior Tibial Vein: 4.1. Compressibility - Fully compressible: Thrombus - None: Flow - Phasic: Augmentation -Normal: Reflux - None. 5. Peroneal Vein: 5.1. Compressibility - Fully compressible: Thrombus - None: Flow - Phasic: Augmentation -Normal: Reflux - None. 6. Great Saphenous Vein: 6.1. Compressibility - Fully compressible: Thrombus - None: Flow - Phasic: Augmentation - Normal: Reflux - None. LEFT: 1. Common Femoral Vein: 1.1. Compressibility - Fully compressible: Thrombus - None: Flow - Phasic: Augmentation -Normal: Reflux - None. 2. Femoral Vein: 2.1. Compressibility - Fully compressible: Thrombus - None: Flow - Phasic: Augmentation -Normal: Reflux - None. 3. Popliteal Vein: 3.1. Compressibility - Fully compressible: Thrombus - None : Flow - Phasic: Augmentation -Normal: Reflux - None. 4. Posterior Tibial Vein: 4.1. Compressibility - Fully compressible: Thrombus - None: Flow - Phasic: Augmentation -Normal: Reflux - None. 5. Peroneal Vein: 5.1. Compressibility - Fully compressible: Thrombus - None: Flow - Phasic: Augmentation -Normal: Reflux - None. 6. Great Saphenous Vein: 6.1. Compressibility - Fully compressible: Thrombus - None: Flow - Phasic: Augmentation - Normal: Reflux - None. OTHER FINDINGS: Right: None significant. Left: None significant. IMPRESSION: Right: No evidence of deep or superficial vein thrombosis of the right lower extremity. Normal valve function noted of the right side. Left: No evidence of deep or superficial vein thrombosis of the left lower extremity. Normal valve function noted of the left side.
--- NOTE | 2017-12-22 12:30 | CP.PCM.PN ---
Subjective - Date & Time of Evaluation Date of Evaluation: 12/22/17 Time of Evaluation: 12:27 - Subjective Subjective: C/O LT LEG PAIN UNABLE TO BEAR WEIGHT. AFEBRILE. LT LEG CELLULITIS PRESENT. VENOUS DOPPLER NEG FOR DVT. LABS IMPROVE. Objective - Vital Signs/Intake and Output Vital Signs (last 24 hours): Temp Pulse Resp BP Pulse Ox 98.5 F 98 H 20 122/71 99 12/22/17 08:41 12/22/17 08:41 12/22/17 08:41 12/22/17 09:36 12/22/17 08:41 Intake and Output: 12/22/17 12/22/17 06:59 18:59 Intake Total 700 Balance 700 - Medications Medications: Current Medications Acetaminophen (Tylenol 325mg Tab) 975 mg PO ONCE PRN PRN Reason: Fever >100.4 F Last Admin: 12/21/17 08:47 Dose: 975 mg Aspirin (Aspirin Chewable) 81 mg PO DAILY [facility] Cilostazol (Pletal) 50 mg PO BID [facility] Last Admin: 12/22/17 10:29 Dose: 50 mg Clonidine HCl (Catapres) 0.1 mg PO BID [facility] Last Admin: 12/22/17 09:35 Dose: 0.1 mg Clopidogrel Bisulfate (Plavix) 75 mg PO DAILY [facility] Last Admin: 12/22/17 09:35 Dose: 75 mg Duloxetine HCl (Cymbalta) 20 mg PO DAILY [facility] Last Admin: 12/22/17 10:29 Dose: 20 mg Enalapril Maleate (Vasotec) 20 mg PO DAILY [facility] Last Admin: 12/22/17 09:36 Dose: 20 mg Gabapentin (Neurontin) 300 mg PO BID [facility] Last Admin: 12/22/17 09:35 Dose: 300 mg Glimepiride (Amaryl) 4 mg PO BID [facility] Last Admin: 12/22/17 09:35 Dose: 4 mg Heparin Sodium (Porcine) (Heparin) 5,000 units SC Q12 [facility] Last Admin: 12/22/17 09:36 Dose: 5,000 units Home Med (Patient's Own Medication) 1 tab PO DAILY [facility] Last Admin: 12/22/17 10:29 Dose: 1 tab Home Med (Insulin Lispro Protamin/Lispro [Humalog Mix 75-25 Kwikpen]) 60 unit SQ BID [facility] Hydrochlorothiazide (Microzide) 12.5 mg PO DAILY [facility] Last Admin: 12/22/17 09:35 Dose: 12.5 mg Piperacillin Sod/Tazobactam Sod (Zosyn 3.375 Gm Iv Premix) 3.375 gm in 50 mls @ 100 mls/hr IVPB Q8H [facility] PRN Reason: Protocol Last Admin: 12/22/17 10:46 Dose: 100 mls/hr Vancomycin/Sodium Chloride (Vancomycin 1 Gm/Ns 200 Ml) 1 gm in 200 mls @ 133.333 mls/hr IVPB Q12H [facility] PRN Reason: Protocol Stop: 12/25/17 22:01 Last Admin: 12/22/17 10:47 Dose: Not Given Insulin Glargine (Lantus) 45 unit SC BID [facility] Last Admin: 12/22/17 10:30 Dose: 45 units Oxycodone/Acetaminophen (Percocet 5/325 Mg Tab) 1 tab PO Q6H [facility] PRN Reason: Pain, severe (8-10) Stop: 12/23/17 21:26 Last Admin: 12/21/17 21:35 Dose: 1 tab Rosuvastatin Calcium (Crestor) 20 mg PO HS [facility] Last Admin: 12/21/17 21:38 Dose: 20 mg Zolpidem Tartrate (Ambien) 5 mg PO HS PRN PRN Reason: Insomnia Last Admin: 12/21/17 22:40 Dose: 5 mg - Labs Labs: 12/22/17 06:36 12/22/17 06:36 PT 10.3 SECONDS (9.7-12.2) 12/20/17 18:44 INR 0.9 12/20/17 18:44 APTT 34 SECONDS (21-34) 12/20/17 18:44 - Constitutional Appears: No Acute Distress, Chronically Ill - Eye Exam Eye Exam: EOMI, Normal appearance, PERRL Pupil Exam: NORMAL ACCOMODATION, PERRL - ENT Exam ENT Exam: Mucous Membranes Moist, Normal Exam - Neck Exam Neck Exam: Full ROM, Normal Inspection. absent: Lymphadenopathy - Respiratory Exam Respiratory Exam: Clear to Ausculation Bilateral, NORMAL BREATHING PATTERN - Cardiovascular Exam Cardiovascular Exam: REGULAR RHYTHM, +S1, +S2. absent: Murmur - GI/Abdominal Exam GI & Abdominal Exam: Soft, Normal Bowel Sounds. absent: Tenderness - Extremities Exam Extremities Exam: Calf Tenderness, Full ROM, Normal Capillary Refill, Normal Inspection, Tenderness. absent: Joint Swelling, Pedal Edema Additional comments: LT LEG TENDERNESS AND REDNESS PRESENT. - Neurological Exam Neurological Exam: Alert, Awake, CN II-XII Intact, Normal Gait, Oriented x3 Assessment and Plan - Assessment and Plan (Free Text) Assessment: CELLULITIS LT LEG. DM HTN. Plan: FOR PT. CT IV ABTS. WARM SOAKS.
--- NOTE | 2017-12-22 16:21 | CP.PCM.PN ---
Subjective - Date & Time of Evaluation Date of Evaluation: 12/22/17 Time of Evaluation: 09:00 - Subjective Subjective: swelling persists c/o pain no fever Objective - Vital Signs/Intake and Output Vital Signs (last 24 hours): Temp Pulse Resp BP Pulse Ox 98.5 F 98 H 20 122/71 99 12/22/17 08:41 12/22/17 08:41 12/22/17 08:41 12/22/17 09:36 12/22/17 08:41 Intake and Output: 12/22/17 12/22/17 06:59 18:59 Intake Total 700 410 Balance 700 410 - Medications Medications: Current Medications Acetaminophen (Tylenol 325mg Tab) 975 mg PO ONCE PRN PRN Reason: Fever >100.4 F Last Admin: 12/21/17 08:47 Dose: 975 mg Aspirin (Aspirin Chewable) 81 mg PO DAILY [facility] Cilostazol (Pletal) 50 mg PO BID [facility] Last Admin: 12/22/17 10:29 Dose: 50 mg Clonidine HCl (Catapres) 0.1 mg PO BID [facility] Last Admin: 12/22/17 09:35 Dose: 0.1 mg Clopidogrel Bisulfate (Plavix) 75 mg PO DAILY [facility] Last Admin: 12/22/17 09:35 Dose: 75 mg Duloxetine HCl (Cymbalta) 20 mg PO DAILY [facility] Last Admin: 12/22/17 10:29 Dose: 20 mg Enalapril Maleate (Vasotec) 20 mg PO DAILY [facility] Last Admin: 12/22/17 09:36 Dose: 20 mg Gabapentin (Neurontin) 300 mg PO BID [facility] Last Admin: 12/22/17 09:35 Dose: 300 mg Glimepiride (Amaryl) 4 mg PO BID [facility] Last Admin: 12/22/17 09:35 Dose: 4 mg Heparin Sodium (Porcine) (Heparin) 5,000 units SC Q12 [facility] Last Admin: 12/22/17 09:36 Dose: 5,000 units Home Med (Patient's Own Medication) 1 tab PO DAILY [facility] Last Admin: 12/22/17 10:29 Dose: 1 tab Hydrochlorothiazide (Microzide) 12.5 mg PO DAILY [facility] Last Admin: 12/22/17 09:35 Dose: 12.5 mg Piperacillin Sod/Tazobactam Sod (Zosyn 3.375 Gm Iv Premix) 3.375 gm in 50 mls @ 100 mls/hr IVPB Q8H [facility] PRN Reason: Protocol Last Admin: 12/22/17 10:46 Dose: 100 mls/hr Vancomycin/Sodium Chloride (Vancomycin 1 Gm/Ns 200 Ml) 1 gm in 200 mls @ 133.333 mls/hr IVPB Q12H [facility] PRN Reason: Protocol Stop: 12/25/17 22:01 Last Admin: 12/22/17 10:47 Dose: Not Given Insulin Glargine (Lantus) 45 unit SC BID [facility] Last Admin: 12/22/17 10:30 Dose: 45 units Oxycodone/Acetaminophen (Percocet 5/325 Mg Tab) 1 tab PO Q6H PRN PRN Reason: Pain, severe (8-10) Stop: 12/23/17 21:26 Last Admin: 12/21/17 21:35 Dose: 1 tab Rosuvastatin Calcium (Crestor) 20 mg PO HS [facility] Last Admin: 12/21/17 21:38 Dose: 20 mg Zolpidem Tartrate (Ambien) 5 mg PO HS PRN PRN Reason: Insomnia Last Admin: 12/21/17 22:40 Dose: 5 mg - Labs Labs: 12/22/17 06:36 12/22/17 06:36 PT 10.3 SECONDS (9.7-12.2) 12/20/17 18:44 INR 0.9 12/20/17 18:44 APTT 34 SECONDS (21-34) 12/20/17 18:44 - Constitutional Appears: Non-toxic, Chronically Ill - Head Exam Head Exam: NORMOCEPHALIC - Eye Exam Eye Exam: PERRL - ENT Exam ENT Exam: Mucous Membranes Dry - Neck Exam Neck Exam: absent: Lymphadenopathy - Respiratory Exam Respiratory Exam: Decreased Breath Sounds - Cardiovascular Exam Cardiovascular Exam: REGULAR RHYTHM - GI/Abdominal Exam GI & Abdominal Exam: Distended Assessment and Plan (1) Cellulitis of leg, left Status: Acute (2) Sepsis Status: Acute - Assessment and Plan (Free Text) Assessment: slow progress may need CT leg r/o abscess cont iv antibiotics
--- NOTE | 2017-12-22 17:37 | US ---
Date of service: 12/22/2017 PROCEDURE: Nonvascular left lower extremity ultrasound HISTORY: left leg ultrasound to r/o abscess left anterior l COMPARISON: None. TECHNIQUE: Grayscale and color Doppler evaluation of the area of concern (anterior left lower extremity) FINDINGS: Ultrasound evaluation of the anterior left lower extremities soft tissues demonstrate subcutaneous edema. No abscess is visualized. IMPRESSION: Ultrasound evaluation of the area of concern demonstrates subcutaneous edema. No abscess.
[2017-12-22] MEDS: Oxycodone/Acetaminophen 5/325 mg Tab PO PRN (20:17)
[2017-12-23] MEDS: Piperacill/Tazo 3.375gm in Dex 3.375 GM/50 ML BAG IVPB SCH ×3 (02:05→17:32)
[2017-12-23] MEDS: Oxycodone/Acetaminophen 5/325 mg Tab PO PRN ×2 (07:46→16:45)
[2017-12-23 08:09] VITALS: O2SAT 98
[2017-12-23] MEDS: (Lantus) Insulin Glargine, Recombinant SC SCH ×2 (10:00→17:50)
[2017-12-23] MEDS: Cilostazol 50 mg Tab UD PO SCH ×2 (10:33→17:39)
[2017-12-23] MEDS: INVOKANA 100MG PO SCH (10:33)
[2017-12-23] MEDS: Vancomycin 1 gm/NS 200 ml 1 GM/200 ML BAG IVPB SCH (10:35)
--- NOTE | 2017-12-23 11:01 | CP.PCM.PN ---
Subjective - Date & Time of Evaluation Date of Evaluation: 12/23/17 Time of Evaluation: 10:59 - Subjective Subjective: IMPROVING. AFEBRILE. DIFFICULTY IN WALKING BECAUSE OF RT LEG PAIN. VS WNL. Objective - Vital Signs/Intake and Output Vital Signs (last 24 hours): Temp Pulse Resp BP Pulse Ox 97.8 F 90 20 111/71 98 12/23/17 07:09 12/23/17 07:09 12/23/17 07:09 12/23/17 10:32 12/23/17 07:09 Intake and Output: 12/23/17 12/23/17 06:59 18:59 Intake Total 600 Balance 600 - Medications Medications: Current Medications Acetaminophen (Tylenol 325mg Tab) 975 mg PO ONCE PRN PRN Reason: Fever >100.4 F Last Admin: 12/21/17 08:47 Dose: 975 mg Aspirin (Aspirin Chewable) 81 mg PO DAILY [facility] Cilostazol (Pletal) 50 mg PO BID [facility] Last Admin: 12/23/17 10:33 Dose: 50 mg Clonidine HCl (Catapres) 0.1 mg PO BID [facility] Last Admin: 12/23/17 10:32 Dose: 0.1 mg Clopidogrel Bisulfate (Plavix) 75 mg PO DAILY [facility] Last Admin: 12/23/17 10:31 Dose: 75 mg Duloxetine HCl (Cymbalta) 20 mg PO DAILY [facility] Last Admin: 12/23/17 10:32 Dose: 20 mg Enalapril Maleate (Vasotec) 20 mg PO DAILY [facility] Last Admin: 12/23/17 10:32 Dose: 20 mg Gabapentin (Neurontin) 300 mg PO BID [facility] Last Admin: 12/23/17 10:31 Dose: 300 mg Glimepiride (Amaryl) 4 mg PO BID [facility] Last Admin: 12/23/17 10:32 Dose: 4 mg Heparin Sodium (Porcine) (Heparin) 5,000 units SC Q12 [facility] Last Admin: 12/23/17 10:34 Dose: 5,000 units Home Med (Patient's Own Medication) 1 tab PO DAILY [facility] Last Admin: 12/23/17 10:33 Dose: 1 tab Hydrochlorothiazide (Microzide) 12.5 mg PO DAILY [facility] Last Admin: 12/23/17 10:32 Dose: 12.5 mg Piperacillin Sod/Tazobactam Sod (Zosyn 3.375 Gm Iv Premix) 3.375 gm in 50 mls @ 100 mls/hr IVPB Q8H [facility] PRN Reason: Protocol Last Admin: 12/23/17 10:35 Dose: 100 mls/hr Vancomycin/Sodium Chloride (Vancomycin 1 Gm/Ns 200 Ml) 1 gm in 200 mls @ 133.333 mls/hr IVPB Q12H [facility] PRN Reason: Protocol Stop: 12/25/17 22:01 Last Admin: 12/23/17 10:35 Dose: 133.333 mls/hr Insulin Glargine (Lantus) 45 unit SC BID [facility] Last Admin: 12/22/17 17:32 Dose: 45 units Oxycodone/Acetaminophen (Percocet 5/325 Mg Tab) 1 tab PO Q6H PRN PRN Reason: Pain, severe (8-10) Stop: 12/23/17 21:26 Last Admin: 12/23/17 07:46 Dose: 1 tab Rosuvastatin Calcium (Crestor) 20 mg PO HS [facility] Last Admin: 12/22/17 21:19 Dose: 20 mg Zolpidem Tartrate (Ambien) 5 mg PO HS PRN PRN Reason: Insomnia Last Admin: 12/22/17 21:20 Dose: 5 mg - Labs Labs: 12/22/17 06:36 12/22/17 06:36 PT 10.3 SECONDS (9.7-12.2) 12/20/17 18:44 INR 0.9 12/20/17 18:44 APTT 34 SECONDS (21-34) 12/20/17 18:44 - Constitutional Appears: No Acute Distress, Chronically Ill - Eye Exam Eye Exam: EOMI, Normal appearance, PERRL Pupil Exam: NORMAL ACCOMODATION, PERRL - ENT Exam ENT Exam: Mucous Membranes Moist, Normal Exam - Neck Exam Neck Exam: Full ROM, Normal Inspection. absent: Lymphadenopathy - Respiratory Exam Respiratory Exam: Clear to Ausculation Bilateral, NORMAL BREATHING PATTERN - Cardiovascular Exam Cardiovascular Exam: REGULAR RHYTHM, +S1, +S2. absent: Murmur - GI/Abdominal Exam GI & Abdominal Exam: Soft, Normal Bowel Sounds. absent: Tenderness - Extremities Exam Additional comments: CELLULITIS LT LEG. - Neurological Exam Neurological Exam: Alert, Awake, CN II-XII Intact, Normal Gait, Oriented x3 - Psychiatric Exam Psychiatric exam: Normal Affect, Normal Mood Assessment and Plan - Assessment and Plan (Free Text) Assessment: CELLULITIS. Plan: FOR IV ABTS. D/C HOME WITH WALKER. X RAY LS SPINES.
--- NOTE | 2017-12-23 12:44 | CP.PCM.PN ---
Subjective - Date & Time of Evaluation Date of Evaluation: 12/23/17 Time of Evaluation: 12:39 - Subjective Subjective: PT SEEN BY DR. Manuel COHEN AND CLEARED FOR D/C THIS EVENING. PER MY DISCUSSION WITH DR. STONER, PT TO TAKE CLINDA PO X7 DAYS AND TO F/U WITH DR. LAMA. PT NOT SEEN BY PODIATRY DURING THIS ADMISSION, HOWEVER, I HAVE PROVIDED DR. LAMA' S OFFICE INFORMATION SO THAT PT CAN MAKE AN APPOINTMENT. FAMILY AT BEDSIDE. REVIEWED AND DISCUSSED ALL D/C INFORMATION AND RX WITH THEM. SEE BELOW FOR FURTHER D/C INFORMATION SENT WITH THE PT. NO FURTHER ORDERS. -FOLLOW UP WITH DR. Manuel COHEN IN THE OFFICE IN 5-7 DAYS---CALL THE OFFICE ON MONDAY TO MAKE YOUR APPOINTMENT. -PER DR. STONER'S RECOMMENDATIONS, MAKE AN APPOINTMENT WITH DR. LAMA (PODIATRY ) IN THE OFFICE WITHIN 1 WEEK---CALL THE OFFICE ON MONDAY TO MAKE YOUR APPOINTMENT. -HOME PHYSICAL THERAPY HAS BEEN ARRANGED FOR YOU. THE COMPANY PROVIDING SERVICES WILL CONTACT YOU REGARDING SERVICES BEING PROVIDED AND WHEN THEY WILL BEGIN. -CONTINUE HOME MEDICATIONS USUAL. -YOU HAVE BEEN PRESCRIBED ANTIBIOTICS PER DR. STONER. TAKE EXACTLY PRESCRIBED: 1) CLEOCIN 300 MG---TAKE 1 TABLET BY MOUTH 3 TIMES A DAY (WITH BREAKFAST, LUNCH , AND DINNER) FOR A TOTAL OF 7 DAYS (START ON 12/24/17 AND LAST DAY TO BE TAKEN IS 12/30/17). 2) FLORASTOR---THIS IS A VITAMIN FOR YOUR STOMACH AND INTESTINES WHILE YOU ARE TAKING THE CLEOCIN---TAKE 1 CAPSULE BY MOUTH TWICE A DAY (MORNING AND EVENING) FOR 7 DAYS (START ON 12/24/17 AND LAST DAY TO BE TAKEN IS 12/30/17). -FOR FURTHER QUESTIONS OR ORDERS, CONTACT DR. Manuel COHEN. Objective - Vital Signs/Intake and Output Vital Signs (last 24 hours): Temp Pulse Resp BP Pulse Ox 97.8 F 90 20 111/71 98 12/23/17 07:09 12/23/17 07:09 12/23/17 07:09 12/23/17 10:32 12/23/17 07:09 Intake and Output: 07/28/18 07/28/18 06:59 18:59 Intake Total 600 Balance 600 - Medications Medications: Current Medications Acetaminophen (Tylenol 325mg Tab) 975 mg PO ONCE PRN PRN Reason: Fever >100.4 F Last Admin: 12/21/17 08:47 Dose: 975 mg Aspirin (Aspirin Chewable) 81 mg PO DAILY [facility] Last Admin: 12/23/17 11:27 Dose: 81 mg Cilostazol (Pletal) 50 mg PO BID [facility] Last Admin: 12/23/17 10:33 Dose: 50 mg Clonidine HCl (Catapres) 0.1 mg PO BID [facility] Last Admin: 12/23/17 10:32 Dose: 0.1 mg Clopidogrel Bisulfate (Plavix) 75 mg PO DAILY [facility] Last Admin: 12/23/17 10:31 Dose: 75 mg Duloxetine HCl (Cymbalta) 20 mg PO DAILY [facility] Last Admin: 12/23/17 10:32 Dose: 20 mg Enalapril Maleate (Vasotec) 20 mg PO DAILY [facility] Last Admin: 12/23/17 10:32 Dose: 20 mg Gabapentin (Neurontin) 300 mg PO BID [facility] Last Admin: 12/23/17 10:31 Dose: 300 mg Glimepiride (Amaryl) 4 mg PO BID [facility] Last Admin: 12/23/17 10:32 Dose: 4 mg Heparin Sodium (Porcine) (Heparin) 5,000 units SC Q12 [facility] Last Admin: 12/23/17 10:34 Dose: 5,000 units Home Med (Patient's Own Medication) 1 tab PO DAILY [facility] Last Admin: 12/23/17 10:33 Dose: 1 tab Hydrochlorothiazide (Microzide) 12.5 mg PO DAILY [facility] Last Admin: 12/23/17 10:32 Dose: 12.5 mg Piperacillin Sod/Tazobactam Sod (Zosyn 3.375 Gm Iv Premix) 3.375 gm in 50 mls @ 100 mls/hr IVPB Q8H [facility] PRN Reason: Protocol Last Admin: 12/23/17 10:35 Dose: 100 mls/hr Vancomycin/Sodium Chloride (Vancomycin 1 Gm/Ns 200 Ml) 1 gm in 200 mls @ 133.333 mls/hr IVPB Q12H [facility] PRN Reason: Protocol Stop: 12/25/17 22:01 Last Admin: 12/23/17 10:35 Dose: 133.333 mls/hr Insulin Glargine (Lantus) 45 unit SC BID [facility] Last Admin: 12/23/17 10:00 Dose: 45 units Oxycodone/Acetaminophen (Percocet 5/325 Mg Tab) 1 tab PO Q6H PRN PRN Reason: Pain, severe (8-10) Stop: 12/23/17 21:26 Last Admin: 12/23/17 07:46 Dose: 1 tab Rosuvastatin Calcium (Crestor) 20 mg PO HS [facility] Last Admin: 12/22/17 21:19 Dose: 20 mg Zolpidem Tartrate (Ambien) 5 mg PO HS PRN PRN Reason: Insomnia Last Admin: 12/22/17 21:20 Dose: 5 mg - Labs Labs: 12/22/17 06:36 12/22/17 06:36 PT 10.3 SECONDS (9.7-12.2) 12/20/17 18:44 INR 0.9 12/20/17 18:44 APTT 34 SECONDS (21-34) 12/20/17 18:44
--- NOTE | 2017-12-23 14:03 | CARD ---
APPROVED REPORT Date of service: 12/22/2017 EXAM: Two-dimensional and M-mode echocardiogram with Doppler and color Doppler. Other Information Quality : Technically LimitedRhythm : INDICATION SEPSIS 2D DIMENSIONS IVSd1.4 (0.7-1.1cm)Aortic Root (2D)3.2 (2.0-3.7cm) LVDd4.3 (3.9-5.9cm)LVOT Diameter2.1 (1.8-2.4cm) PWd1.3 (0.7-1.1cm)LVDs3.4 (2.5-4.0cm) FS (%) 20.7 %LVEF (%)42.6 (>50%) M-Mode DIMENSIONS Left Atrium (MM)3.59 (2.5-4.0cm)Aortic Root2.81 (2.2-3.7cm) Aortic Cusp Exc.1.60 (1.5-2.0cm) Mitral Valve MV E Ysrvcyjh289.4cm/sMV A Lwwslnle056.1cm/sE/A ratio0.9 TDI E/Lateral E'0.0E/Medial E'0.0 Pulmonary Valve PV Peak Yimowrcr77.5cm/sPV Peak Grad.3mmHg <Conclusion> poor window. normal size la,lv & ra rv. mild concnetric lvh with overall lvef of 40-45%. akinetic apical septum,apex & apical lateral wall.cad. lv diastolic dysfunction grade one. sclerotic mitral & aortic valve. mild mr,trace ai. no pericardial effusion seen. normal size aortic root.
--- NOTE | 2017-12-23 15:40 | RAD ---
Date of service: 12/23/2017 PROCEDURE: Radiographs of the Lumbar Spine. HISTORY: RT LUMBAR RADICULOPATHY. COMPARISON: No prior. FINDINGS: BONES: Normal alignment. No listhesis. No fracture. DISC SPACES: Unremarkable. OTHER FINDINGS: None. IMPRESSION: Unremarkable radiographs of the lumbar spine.
[2017-12-23 17:01] VITALS: TEMP 97.4
[2017-12-23 17:45] VITALS: BP 123/78; PULSE 86
--- NOTE | 2017-12-28 08:01 | DS ---
Copied To: Gilda Cook MD Attending MD: Gilda Cook MD HISTORY OF PRESENT ILLNESS: This is a 57-year-old female who was seen in the office for right and left leg severe pain. The patient has more pain on the left side and unable to walk. The patient also complained of fever and chills. The patient was seen in the office, so she was sent to the emergency room for evaluation. The patient was having cellulitis of right and left feet. PAST MEDICAL HISTORY: History of hypertension, diabetes, coronary artery disease, and osteoarthritis. FAMILY HISTORY: No known inherited disease. SOCIAL HISTORY: Nonsmoker. Nonalcoholic. No IVDA. MEDICATIONS: The patient's medications are reviewed by me. PHYSICAL EXAMINATION: VITAL SIGNS: During the hospital course, the patient's physical examination was showing a fever of 103.2 degrees Fahrenheit, pulse rate was 118 per minute with sinus tachycardia, and blood pressure was normal. LUNGS: Within normal limit. HEART: Within normal limit. EXTREMITIES: Both legs have cellulitis, left having more than the right one. Local warmth and tenderness was present. LABORATORY DATA: The patient has blood cultures done. The patient was started on IV antibiotics. The patient improved. The patient's blood cultures later on showed gram-positive bacilli (after discharge). Sensitivity is not available yet. FINAL DIAGNOSES: Gram-positive bacilli sepsis, left and right leg cellulitis, coronary artery disease, diabetes, osteoarthritis, and hypertension. PLAN: The patient was discharged home with Cleocin 300 mg p.o. three times a day. The patient will be followed by me in the office in about one week. Gilda Cook MD
== END 2017-12-23 19:30 | disposition home or self-care (01) | DRG 901 ==
LOC: C.ER 17:46 → C.9E 20:11 → C.3T 22:22
PROVIDERS: ADMIT Internal Medicine; ATTEND Internal Medicine
DX: A41.89 Other specified sepsis (principal); L03.116 Cellulitis of left lower limb; L03.115 Cellulitis of right lower limb; E11.9 Type 2 diabetes mellitus without complications; I10 Essential (primary) hypertension; I25.10 Atherosclerotic heart disease of native coronary artery without angina pectoris; M19.90 Unspecified osteoarthritis, unspecified site; Z95.5 Presence of coronary angioplasty implant and graft